=== PATIENT | female | born 1980 | race African-American/Black ===

== ENCOUNTER 2018-09-29 13:40 | Outpatient (CLI) | payer MEDICAID, OTHER ==
--- NOTE | 2018-09-29 15:16 | ULT ---
TRANSABDOMINAL TRANSVAGINAL PELVIC ULTRASOUND: INDICATION: Heavy menstrual period. COMPARISON: Pelvic ultrasound dated 03/30/[address] of the pelvis dated 04/02/2016. TECHNIQUE: Rich scale, color Doppler, and vascular duplex with spectral analysis was performed of the pelvis via transabdominal and transvaginal approach. FINDINGS: The uterus remains enlarged measuring 13.5 x 7.7 x 6.6 cm. There is a large subendometrial fibroid s uspected involving the posterior uterine body measuring 4.8 x 5.5 x 4.3 cm. This was likely present on the comparison examination and suboptimally visualized on the comparison examination. The lesion m easured approximately 4.7 x 3.7 x 4.5 cm on the prior ultrasound exam. There is a large left ovarian cyst measuring 3.1 cm. The left ovary measures 3.8 x 4.1 x 3.6 cm. Th e right ovary measures 3.4 x 2.9 x 1.9 cm. There is normal flow to both ovaries. No free fluid is evident. The endometrial stripe is poorly evaluated due to a large subendometrial f ibroid. IMPRESSION: 1. Large subendometrial fibroid likely present on the comparison examination in 2015 which based on the current measurements may have intervally grown from the prior exam. 2. A 3.1 cm left ovarian cyst. POS: [facility]
== END 2018-09-29 13:41 | disposition home or self-care (01) ==
LOC: SCSULT 13:40
PROVIDERS: ATTEND Family Medicine
DX: N94.6 Dysmenorrhea, unspecified (principal); N83.202 Unspecified ovarian cyst, left side; D26.1 Other benign neoplasm of corpus uteri
CPT/HCPCS: 76856

== ENCOUNTER 2019-10-21 08:56 | Outpatient (CLI) | payer MEDICAID ==
--- NOTE | 2019-10-21 11:28 | ULT ---
PELVIC ULTRASOUND: HISTORY: Dysmenorrhea. Followup cyst. COMPARISON: 09/29/2018. FINDINGS: The uterus remains enlarged measuring 12.8 cm x 7.7 cm x 8.6 cm. Uterus also demonstrates generalize d heterogeneity with what appears to be a large submucosal uterine fibroid again present measuring 6. 2 cm x 4.6 cm x 5.3 cm. Previously obtained measurements were 4.8 cm x 5.5 cm x 4.3 cm. The endomet rial stripe is not well delineated on this exam. Right ovary again demonstrates normal sonographic appearance with arterial flow documented. The anechoic cystic structure within the left ovary is again seen which measures 5.5 cm and demonstra pillo findings suggestive of a large left ovarian cyst with what appears to be a curvilinear septation in the cyst. Prior largest measurement of this left ovarian cystic lesion was 4.1 cm. IMPRESSION: 1. Enlargement of the uterus with what appears to be large uterine fibroid within the central body o f the uterus likely representing a large submucosal uterine fibroid with greatest dimension measured on today's examination of 6.2 cm. 2. Large left ovarian cyst which is larger in size compared to the prior study, and there is a small curvilinear septation present. Followup evaluation in 3-6 months is suggested. POS: [facility]
== END 2019-10-21 08:57 | disposition home or self-care (01) ==
LOC: SCSULT 08:56
PROVIDERS: ATTEND Family Medicine
DX: D25.9 Leiomyoma of uterus, unspecified (principal); D50.9 Iron deficiency anemia, unspecified; N94.6 Dysmenorrhea, unspecified; N83.202 Unspecified ovarian cyst, left side; N85.2 Hypertrophy of uterus
CPT/HCPCS: 76856; 93976

== ENCOUNTER 2020-06-01 07:06 | Outpatient (CLI) | payer MEDICAID, OTHER ==
[2020-06-01 16:40] LABS: Hemoglobin 9.1 g/dL (12.0-16.0); Mean Corpuscular HGB CONC 28.9 g/dL (32.0-36.0); Mean Corpuscular Hemoglobin 21.9 pg (27.0-31.0); Mean Corpuscular Volume 75.8 fL (78.0-98.0); Mean Platelet Volume 9.9 fL (7.4-10.4); Platelet Count 288 thou/uL (130-400); RBC Distribution Width 17.9 % (11.5-14.5); Red Blood Cell (RBC) Count 4.15 mill/uL (4.20-5.40); White Blood Cell (WBC) Count 7.2 thou/uL (4.8-10.8)
[2020-06-01 17:08] LABS: BHCG - Serum Negative (NEGATIVE); Pregs Control Background? CLEAR/WHITE (CLR/WHITE); Pregs Control Bar Appear? YES (CONTROL BAR)
[2020-06-01 17:58] LABS: Chloride 103 mmol/L (98-107); Potassium 3.8 mmol/L (3.5-5.1); Sodium 137 mmol/L (136-145)
[2020-06-01 17:59] LABS: Glucose 92 mg/dL (70-105)
[2020-06-01 18:01] LABS: Anion Gap 15 mmol/L (10-20); Carbon Dioxide 23 mmol/L (22-29)
[2020-06-01 18:02] LABS: Calc. Creatinine Clearance 0 mL/min (70-130); Estimated GFR-MDRD Greater than 90
[2020-06-01 18:03] LABS: BUN (Urea Nitrogen) 11 mg/dL (7.0-18.7)
[2020-06-02 12:21] LABS: SARS-CoV-2 MS2 Positive; SARS-CoV-2 N Gene Negative; SARS-CoV-2 S Gene Negative; SARS-CoV-2 by NAA Not Detected (NotDetected); SARS-CoV-2 orf1ab Negative
== END 2020-06-01 07:07 | disposition home or self-care (01) ==
LOC: LABBT 07:06
PROVIDERS: ATTEND Student in an Organized Health Care Education/Training Program
DX: Z01.812 Encounter for preprocedural laboratory examination (principal); Z20.828 Contact with and (suspected) exposure to other viral communicable diseases; D25.9 Leiomyoma of uterus, unspecified; N83.202 Unspecified ovarian cyst, left side
CPT/HCPCS: 80048; 84703; 85027; 86850; 86870; 86900; 86901; 86905; 87635; U0003

== ENCOUNTER 2020-06-06 05:57 | Day surgery (SDC) | payer MEDICAID ==
[2020-06-02 10:44] VITALS: BMI 31.0
[2020-06-06] MEDS ORDERED: CeleCOXIB 100 MG CAP ONE (06:25)
[2020-06-06] MEDS ORDERED: Gabapentin 300 MG CAP ONE (06:25)
[2020-06-06] MEDS ORDERED: Famotidine/PF 20 mg/2ml Vial ONE ×2 (06:25→07:04)
[2020-06-06] MEDS ORDERED: HYDROmorphone 0.5 MG/0.5 ML SYRINGE ONE ×2 (06:35→12:37)
[2020-06-06] MEDS ORDERED: Fentanyl 100 MCG/2 ML VIAL ONE ×2 (06:35→13:24)
[2020-06-06] MEDS ORDERED: Lidocaine 1% w/Epinephrine 1:100K 20 ML VIAL ONE ×2 (06:36→08:56)
[2020-06-06] MEDS ORDERED: Bupivacaine PF 0.5% 30 ML VIAL ONE ×2 (06:36→08:56)
[2020-06-06] MEDS ORDERED: Midazolam HCl 2 mg/2 ml Vial ONE (07:29)
[2020-06-06] MEDS ORDERED: Tranexamic Acid 1,000 MG/10 ML VIAL ONE ×3 (08:28→14:30)
[2020-06-06] MEDS ORDERED: Rocuronium Bromide 10 MG/ML (10ML VIAL) ONE (09:15)
[2020-06-06] MEDS ORDERED: Lidocaine 1% PF 5 ML VIAL ONE (09:15)
[2020-06-06] MEDS ORDERED: Ondansetron PF 4 MG/2 ML Vial ONE (09:15)
[2020-06-06] MEDS ORDERED: PROPOFOL 200 MG/20 ML VIAL ONE (09:15)
[2020-06-06] MEDS ORDERED: Dexamethasone 20 MG/5 ML VIAL ONE (09:15)
[2020-06-06] MEDS ORDERED: Ketorolac Tromethamine 30 MG/ML VIAL IVP PRN (11:02)
[2020-06-06] MEDS ORDERED: HYDROmorphone 2 MG/ML VIAL SLOW IVP PRN (11:02)
[2020-06-06] MEDS ORDERED: Ondansetron HCl/PF 4 MG/2 ML Vial IVP PRN (11:02)
[2020-06-06] MEDS ORDERED: Promethazine HCl 25 MG/ML VIAL SLOW IVP PRN (11:02)
[2020-06-06] MEDS ORDERED: Meperidine HCl/PF 25 MG/ML VIAL SLOW IVP PRN (11:02)
[2020-06-06] MEDS ORDERED: SUGAMMADEX SODIUM 200 MG/2 ML VIAL ONE (12:33)
[2020-06-06] MEDS ORDERED: Promethazine HCl 25 MG/ML VIAL IM PRN (13:17)
[2020-06-06] MEDS ORDERED: HYDROcodone/Acetaminophen 5/325 mg Tablet PO PRN ×2 (13:17)
[2020-06-06] MEDS ORDERED: Bisacodyl 10 MG SUPP PR PRN (13:17)
[2020-06-06] MEDS ORDERED: Zolpidem Tartrate 5 MG TAB PO PRN (13:17)
[2020-06-06] MEDS ORDERED: traMADol HCl 50 MG TAB PO PRN (13:17)
[2020-06-06] MEDS ORDERED: Ondansetron PF 4 MG/2 ML Vial IVP PRN (13:17)
[2020-06-06] MEDS ORDERED: diphenhydrAMINE 25 MG CAP PO PRN (13:17)
[2020-06-06] MEDS ORDERED: Simethicone Chewable 80 MG TAB PO PRN (13:17)
[2020-06-06] MEDS ORDERED: Docusate 100 MG CAP PO PRN (13:30)
[2020-06-06] MEDS ORDERED: Labetalol HCl 100 MG/20 ML VIAL ONE (13:58)
--- NOTE | 2020-06-06 14:33 | EKG ---
Test Reason : PREOP Blood Pressure : / mmHG Vent. Rate : 070 BPM Atrial Rate : 070 BPM P-R Int : 192 ms QRS Dur : 082 ms QT Int : 384 ms P-R-T Axes : 065 034 040 degrees QTc Int : 414 ms Normal sinus rhythm with sinus arrhythmia Normal ECG No previous ECGs available Confirmed by TORREY HECK M.D. ([id number] on 06/06/2020 2:33:14 PM Referred By: DINORAH Confirmed By:TORREY HECK M.D.
[2020-06-06] MEDS ORDERED: Tranexamic Acid 1,000 MG/10 ML VIAL IVP SCH (17:00)
[2020-06-06] MEDS: Ketorolac Tromethamine 30 MG/ML VIAL IVP SCH (17:54)
[2020-06-06] MEDS: Ferrous Sulfate 325 MG TAB PO SCH (18:30)
[2020-06-06] MEDS: Sodium Chloride 0.9% 1,000 ML IV SCH (20:56)
[2020-06-06] MEDS: Methimazole 10 MG TAB PO SCH (21:04)
[2020-06-07] MEDS: Sodium Chloride 0.9% 1,000 ML IV SCH ×3 (00:02→15:27)
[2020-06-07] MEDS: Ketorolac Tromethamine 30 MG/ML VIAL IVP SCH (00:20)
[2020-06-07 06:03] LABS: Hemoglobin 7.3 g/dL (12.0-16.0); Mean Corpuscular HGB CONC 29.2 g/dL (32.0-36.0); Mean Corpuscular Hemoglobin 23.1 pg (27.0-31.0); Mean Corpuscular Volume 79.1 fL (78.0-98.0); Mean Platelet Volume 8.7 fL (7.4-10.4); Platelet Count 209 thou/uL (130-400); RBC Distribution Width 19.8 % (11.5-14.5); Red Blood Cell (RBC) Count 3.14 mill/uL (4.20-5.40); White Blood Cell (WBC) Count 16.2 thou/uL (4.8-10.8)
[2020-06-07] MEDS: Ibuprofen 800 MG TAB PO SCH ×2 (06:27→16:06)
[2020-06-07] MEDS: Ferrous Sulfate 325 MG TAB PO SCH ×2 (08:18→11:27)
[2020-06-07] MEDS ORDERED: Doxycycline 100 MG CAP PO SCH (09:00)
[2020-06-07] MEDS ORDERED: Furosemide 40 MG TAB PO SCH (09:00)
[2020-06-07] MEDS ORDERED: Calcium Carbonate 600 MG + Vit D TAB PO SCH (09:00)
[2020-06-07] MEDS: Methimazole 10 MG TAB PO SCH (09:05)
[2020-06-07] MEDS ORDERED: Acetaminophen 500 MG TAB PO SCH (10:30)
[2020-06-07] MEDS ORDERED: Iron Sucrose Complex 500 MG in Sodium Chloride 0.9% 250 ML 250 ML IVPB SCH (11:00)
--- NOTE | 2020-06-07 12:46 | PDOC.EVN ---
Event Note - Event Note Event Note: POD1 S: Pain controlled, voiding, raiza po. Denies dizziness, lightheadedness O: VSSAF Uterine output overnight: 80cc NAD unlabored respiration soft abd/appttp/inc c/d/i x 5 no edema Hgb 7.3 A) POD 1 s/p RA myomectomy, left ovarian cystectomy P) VSSAF Hgb 7.3 postop, acute postop anemia on chronic iron def anemia, asymptomatic, plan for IV iron infusion prior to DC, cont oral iron replacement. Met appropriate postop milestones No concern with uterine catheter outpt, will remove 15cc from balloon, leaving 15cc in balloon. Cont x 7d with estrogen replacement and doxycycline ppx. Plan for DC after iron infusion
[2020-06-07 17:14] VITALS: BP 142/84; TEMP 97.9
== END 2020-06-07 17:34 | disposition home or self-care (01) ==
LOC: SDC 05:57 → 3SE 13:17 → SDC 06-07 17:34
PROVIDERS: ATTEND Student in an Organized Health Care Education/Training Program
PROC: 0UB14ZZ Excision of Left Ovary, Percutaneous Endoscopic Approach (ICD-10-PCS; principal; 2020-06-07)
PROC: 0UB94ZZ Excision of Uterus, Percutaneous Endoscopic Approach (ICD-10-PCS; principal; 2020-06-07)
DX: D25.9 Leiomyoma of uterus, unspecified (principal); N83.202 Unspecified ovarian cyst, left side; N80.0 Endometriosis of uterus; F17.210 Nicotine dependence, cigarettes, uncomplicated; I50.9 Heart failure, unspecified; Z79.899 Other long term (current) drug therapy
CPT/HCPCS: 36415; 85027; 86850; 86900; 86901; 86922; 88305; 93005; 93010; J0690; J1100; J1170; J1756; J1885; J2250; J2405; J2704; J3010; J7050; S0020; S0028

== ENCOUNTER 2020-08-29 07:48 | Outpatient (CLI) | payer MEDICAID ==
[2020-08-29 08:17] LABS: BHCG - Serum Negative (NEGATIVE)
[2020-08-29 08:22] LABS: Pregs Control Background? CLEAR/WHITE (CLR/WHITE); Pregs Control Bar Appear? NO (CONTROL BAR)
--- NOTE | 2020-08-29 10:43 | RAD ---
HYSTEROSALPINGOGRAM: HISTORY: Uterine leiomyoma. Evaluate for possible tubal patency. Patient is wanting to have another child. Pat ient is status post fibroid surgery and cyst removal. EXPOSURE: 1.3 minutes, 356.6 mGy*^m2. FINDINGS: Initial development and planning engineer radiograph of the pelvis demonstrates normal bony pelvic structures. Retrograde opacifi cation of the endometrium was attempted. There is irregularity in what is presumed to be the endometrial cavity without significant expansion. There is reflux of contrast into the vaginal vault. Examination was repeated with the assistance of Dr. Blake. Again, there is irregularity and what is presumed to be the endometrium reflux of contrast into the vaginal vault. Incomplete expansion/montserrat luation of the endometrium. Fallopian tubes cannot be assessed. IMPRESSION: Irregularity involving what is presumed to be the endometrium which may represent scar tissue. Results of study conveyed to Dr. Knowles via [employer] connect 08/29/2020 at 10:42 AM. Code CR Transcribed Date/Time: 08/29/2020 10:47 AM
[2020-08-29] MEDS ORDERED: Iopamidol 300 61% 50 ML VIAL FS ONE (13:19)
== END 2020-08-29 07:49 | disposition home or self-care (01) ==
LOC: RAD 07:48
PROVIDERS: ATTEND Student in an Organized Health Care Education/Training Program
DX: Z32.00 Encounter for pregnancy test, result unknown (principal); D25.9 Leiomyoma of uterus, unspecified; N85.9 Noninflammatory disorder of uterus, unspecified
CPT/HCPCS: 36415; 58340; 74740; 84703; Q9967

== ENCOUNTER 2025-07-14 18:15 | Inpatient (IN) | payer OTHER ==
[~2025-07-14 18:15] MED LIST: Iopamidol-370 76% 500 ML MDV (1 ML CHARGE) ONE
[2025-07-14 18:55] LABS: #Basophils 0.06 10x3/uL (0.0-0.2); #Eosinophils 0.07 10x3/uL (0.0-0.7); #Monocytes 0.51 10x3/uL (0.11-0.59); #Neutrophils 3.06 10x3/uL (1.40-6.50); %Basophils 0.8 % (0.0-1.0); %Eosinophils 1.0 % (0.0-10.0); %Lymphocytes 48.5 % (21.0-51.0); %Monocytes 7.1 % (0.0-10.0); %Neutrophils 42.5 % (42.0-75.0); Hematocrit 42.6 % (36.0-47.0); Hemoglobin 13.5 g/dL (12.0-16.0); Mean Corpuscular Hemoglobin 26.3 pg (27.0-31.0); Mean Corpuscular Volume 82.9 fL (78.0-98.0); Platelet Count 213 10x3/uL (130-400); Red Blood Cell (RBC) Count 5.14 mill/uL (4.20-5.40); White Blood Cell (WBC) Count 7.21 10x3/uL (4.8-10.8)
[2025-07-14 19:08] LABS: BHCG - Serum Negative (NEGATIVE); Pregs Control Background? CLEAR/WHITE (CLR/WHITE); Pregs Control Bar Appear? YES (CONTROL BAR)
[2025-07-14 19:20] LABS: ALT (SGPT) 21 U/L (Less than 34); AST (SGOT) 32 U/L (11-34); Albumin 2.8 g/dL (3.1-4.5); Alkaline Phosphatase 214 U/L (40-110); Anion Gap 16 mmol/L (10-20); BUN (Urea Nitrogen) 11 mg/dL (7.0-18.7); Bilirubin, Total 3.9 mg/dL (0.3-1.2); Calc. Creatinine Clearance 0 mL/min (70-130); Calcium 9.0 mg/dL (7.8-10.44); Carbon Dioxide 23 mmol/L (22-29); Chloride 105 mmol/L (98-107); Globulin 5.0 g/dL (2.4-3.5); Glucose 109 mg/dL (70-105); Potassium 4.1 mmol/L (3.5-5.1); Sodium 140 mmol/L (136-145)
[2025-07-14] MEDS ORDERED: Enoxaparin 80 MG (0.8 mL) SYRINGE ONE (21:34)
[2025-07-14 21:49] LABS: Bacteria/HPF None Seen HPF (None Seen); CAUTI Indications for Culture Dysuria,urgency,freq; Glucose, Urine (Dipstick) Normal (Negative); Leukocyte 250 Leu/uL (Negative); Protein, Urine (Dipstick) 50 mg/dL (Neg-Trace)
[2025-07-14 21:56] LABS: Specific Gravity, Urine Greater than 1.050 (1.002-1.036)
[2025-07-14 21:57] LABS: Urine Culture Reflex Yes Yes
[2025-07-14] MEDS ORDERED: Furosemide 40 MG (4 mL) VIAL ONE (22:18)
[2025-07-14] MEDS ORDERED: Ondansetron PF 4 MG/2 ML Vial IVP PRN (22:27)
[2025-07-14] MEDS ORDERED: Acetaminophen 325 MG TAB PO PRN (22:27)
[2025-07-14] MEDS ORDERED: Calcium Carbonate 500 MG ChewTAB PO PRN (22:27)
[2025-07-14] MEDS ORDERED: Electrolyte Replacement Protocol 1 EACH FS SCH (22:30)
[2025-07-15] MEDS: Furosemide 40 MG (4 mL) VIAL SLOW IVP SCH ×2 (02:25→09:07)
[2025-07-15 04:09] LABS: #Basophils 0.04 10x3/uL (0.0-0.2); #Eosinophils 0.04 10x3/uL (0.0-0.7); #Monocytes 0.58 10x3/uL (0.11-0.59); #Neutrophils 3.45 10x3/uL (1.40-6.50); %Basophils 0.6 % (0.0-1.0); %Eosinophils 0.6 % (0.0-10.0); %Lymphocytes 38.0 % (21.0-51.0); %Monocytes 8.7 % (0.0-10.0); %Neutrophils 51.8 % (42.0-75.0); Hematocrit 41.9 % (36.0-47.0); Hemoglobin 13.1 g/dL (12.0-16.0); Mean Corpuscular Hemoglobin 26.1 pg (27.0-31.0); Mean Corpuscular Volume 83.5 fL (78.0-98.0); Platelet Count 233 10x3/uL (130-400); Red Blood Cell (RBC) Count 5.02 mill/uL (4.20-5.40); White Blood Cell (WBC) Count 6.66 10x3/uL (4.8-10.8)
[2025-07-15 04:36] LABS: ALT (SGPT) 19 U/L (Less than 34); AST (SGOT) 26 U/L (11-34); Albumin 2.6 g/dL (3.1-4.5); Alkaline Phosphatase 196 U/L (40-110); Anion Gap 16 mmol/L (10-20); BUN (Urea Nitrogen) 11 mg/dL (7.0-18.7); Bilirubin, Total 4.7 mg/dL (0.3-1.2); Calc. Creatinine Clearance 169 mL/min (70-130); Calcium 8.7 mg/dL (7.8-10.44); Carbon Dioxide 21 mmol/L (22-29); Chloride 105 mmol/L (98-107); Globulin 4.5 g/dL (2.4-3.5); Glucose 143 mg/dL (70-105); Magnesium 1.6 mg/dL (1.6-2.6); Potassium 3.7 mmol/L (3.5-5.1); Sodium 138 mmol/L (136-145)
[2025-07-15 06:01] LABS: Cocaine Metabolite Screen Negative (Negative); THC/Cannabinoid Screen PRELIM POSITIVE (Negative); Tricyclic Screen Negative (Negative)
[2025-07-15] MEDS ORDERED: Cyclobenzaprine 10 MG TAB PO PRN (08:27)
[2025-07-15 08:53] LABS: Free T4 (Free Thyroxine) 3.11 ng/dL (0.70-1.48); T4 12.75 ug/dL (4.87-11.72)
[2025-07-15] MEDS: Magnesium 2 GM/50 ML(in water) 2 GM in Premix 1 BAG IVPB SCH (09:45)
[2025-07-15] MEDS: cefTRIAXone\\ROCEPHIN 1 GM in Sodium Chloride 0.9% 100 ML IVPB SCH (09:45)
[2025-07-15] MEDS: Sacubitril 24MG/Valsartan 26 MG TAB PO SCH (11:25)
[2025-07-15] MEDS: Spironolactone 25 MG TAB PO SCH (11:25)
[2025-07-15] MEDS: Apixaban 5 MG TAB PO SCH (11:25)
[2025-07-15] MEDS: Carvedilol 6.25 MG TAB PO SCH (11:26)
[2025-07-15] MEDS: Cyclobenzaprine 10 MG TAB PO SCH (11:26)
[2025-07-15] MEDS: Albumin 25% 25 GM (100 mL) BOT IVPB SCH (15:39)
[2025-07-15] MEDS ORDERED: Vancomycin (BATCH) 2 GM Premix IVPB SCH (15:45)
[2025-07-15] MEDS ORDERED: Electrolyte Replacement Protocol 1 EACH FS SCH (15:45)
[2025-07-15 16:17] LABS: Pregnancy Test - Urine (BHCG) Negative (Negative); Pregu Control Background? CLEAR/WHITE (CLR/WHITE); Pregu Control Bar Appear? YES (CONTROL BAR)
[2025-07-15] MEDS: Norepinephrine 8 MG/0.9% NS 250 ML ONE (16:18)
[2025-07-15] MEDS: Norepinephrine 8 MG/0.9% NS 250 ML IVPB SCH (16:18)
[2025-07-15 16:22] LABS: Glucose, Urine (Dipstick) Normal (Negative); Leukocyte 250 Leu/uL (Negative); Protein, Urine (Dipstick) 30 mg/dL (Neg-Trace); RBC/HPF None Seen HPF (0-3); Specific Gravity, Urine 1.049 (1.002-1.036)
[2025-07-15 16:23] LABS: Bacteria/HPF 1+ HPF (None Seen)
[2025-07-15] MEDS: VANCOMYCIN 2 GRAM/400 ML Premix BAG IVPB SCH (16:39)
[2025-07-15 16:42] LABS: #Basophils Less than 0.03 10x3/uL (0.0-0.2); #Eosinophils Less than 0.03 10x3/uL (0.0-0.7); #Monocytes 0.51 10x3/uL (0.11-0.59); #Neutrophils 3.97 10x3/uL (1.40-6.50); %Basophils 0.2 % (0.0-1.0); %Eosinophils 0.2 % (0.0-10.0); %Lymphocytes 27.9 % (21.0-51.0); %Monocytes 8.1 % (0.0-10.0); %Neutrophils 63.3 % (42.0-75.0); Hematocrit 28.3 % (36.0-47.0); Hemoglobin 8.7 g/dL (12.0-16.0); Mean Corpuscular Hemoglobin 26.2 pg (27.0-31.0); Mean Corpuscular Volume 85.2 fL (78.0-98.0); Platelet Count 148 10x3/uL (130-400); Red Blood Cell (RBC) Count 3.32 mill/uL (4.20-5.40); White Blood Cell (WBC) Count 6.27 10x3/uL (4.8-10.8)
[2025-07-15] MEDS: Dapagliflozin Propanediol 10 MG TAB PO SCH (18:23)
[2025-07-15] MEDS: Digoxin 0.5 MG/2 ML AMP SLOW IVP SCH ×3 (18:24→20:55)
[2025-07-15 19:42] LABS: ALT (SGPT) 43 U/L (Less than 34); AST (SGOT) 98 U/L (11-34); Albumin 2.7 g/dL (3.1-4.5); Alkaline Phosphatase 171 U/L (40-110); Anion Gap 17 mmol/L (10-20); BUN (Urea Nitrogen) 17 mg/dL (7.0-18.7); Bilirubin, Total 4.5 mg/dL (0.3-1.2); Calc. Creatinine Clearance 120 mL/min (70-130); Calcium 8.4 mg/dL (7.8-10.44); Carbon Dioxide 20 mmol/L (22-29); Chloride 104 mmol/L (98-107); Globulin 3.9 g/dL (2.4-3.5); Glucose 97 mg/dL (70-105); Potassium 4.5 mmol/L (3.5-5.1); Sodium 136 mmol/L (136-145)
[2025-07-15] MEDS ORDERED: Vancomycin 1 GM in Premix 1 BAG IVPB SCH (21:00)
[2025-07-16 04:33] LABS: Vancomycin, Random 14.0 ug/mL (See Comment)
[2025-07-16] MEDS: VANCOMYCIN 1.75 GM/350 ML BAG 1.75 GM in Premix 1 BAG IVPB SCH (05:33)
[2025-07-16] MEDS ORDERED: Vancomycin (BATCH) 1.75 GM Premix IVPB SCH (06:00)
[2025-07-16 06:33] VITALS: BMI 29.3
[2025-07-16 08:52] LABS: #Basophils 0.06 10x3/uL (0.0-0.2); #Eosinophils 0.08 10x3/uL (0.0-0.7); #Monocytes 0.89 10x3/uL (0.11-0.59); #Neutrophils 6.50 10x3/uL (1.40-6.50); %Basophils 0.5 % (0.0-1.0); %Eosinophils 0.7 % (0.0-10.0); %Lymphocytes 30.8 % (21.0-51.0); %Monocytes 8.2 % (0.0-10.0); %Neutrophils 59.6 % (42.0-75.0); Hematocrit 43.4 % (36.0-47.0); Hemoglobin 13.3 g/dL (12.0-16.0); Mean Corpuscular Hemoglobin 25.8 pg (27.0-31.0); Mean Corpuscular Volume 84.1 fL (78.0-98.0); Platelet Count 236 10x3/uL (130-400); Red Blood Cell (RBC) Count 5.16 mill/uL (4.20-5.40); White Blood Cell (WBC) Count 10.91 10x3/uL (4.8-10.8)
[2025-07-16 08:54] LABS: CRP, High Sensitivity at Bryan 3.50 mg/dL (< or = 0.5)
[2025-07-16 08:55] LABS: ALT (SGPT) 75 U/L (Less than 34); AST (SGOT) 178 U/L (11-34); Albumin 3.2 g/dL (3.1-4.5); Alkaline Phosphatase 147 U/L (40-110); Anion Gap 15 mmol/L (10-20); BUN (Urea Nitrogen) 16 mg/dL (7.0-18.7); Bilirubin, Total 4.4 mg/dL (0.3-1.2); Calc. Creatinine Clearance 162 mL/min (70-130); Calcium 8.8 mg/dL (7.8-10.44); Carbon Dioxide 24 mmol/L (22-29); Chloride 105 mmol/L (98-107); Globulin 3.6 g/dL (2.4-3.5); Glucose 108 mg/dL (70-105); Magnesium 1.9 mg/dL (1.6-2.6); Potassium 4.0 mmol/L (3.5-5.1); Sodium 140 mmol/L (136-145)
[2025-07-16] MEDS ORDERED: Digoxin 0.5 MG/2 ML AMP SLOW IVP SCH (09:00)
[2025-07-16] MEDS: Digoxin 0.125 MG TAB PO SCH (09:10)
[2025-07-16] MEDS: Amiodarone 200 MG TAB PO SCH (09:10)
[2025-07-16] MEDS: Dapagliflozin Propanediol 10 MG TAB PO SCH (09:15)
[2025-07-16] MEDS: Propranolol 10 MG TAB PO SCH (09:15)
[2025-07-16] MEDS: Magnesium 2 GM/50 ML(in water) 2 GM in Premix 1 BAG IVPB SCH (15:05)
[2025-07-16] MEDS: Vancomycin 1 GM Premix Bag IVPB SCH (18:34)
[2025-07-17 04:08] LABS: #Basophils 0.05 10x3/uL (0.0-0.2); #Eosinophils 0.14 10x3/uL (0.0-0.7); #Monocytes 0.93 10x3/uL (0.11-0.59); #Neutrophils 3.81 10x3/uL (1.40-6.50); %Basophils 0.6 % (0.0-1.0); %Eosinophils 1.7 % (0.0-10.0); %Lymphocytes 40.8 % (21.0-51.0); %Monocytes 11.1 % (0.0-10.0); %Neutrophils 45.7 % (42.0-75.0); Hematocrit 38.0 % (36.0-47.0); Hemoglobin 12.0 g/dL (12.0-16.0); Mean Corpuscular Hemoglobin 26.3 pg (27.0-31.0); Mean Corpuscular Volume 83.2 fL (78.0-98.0); Platelet Count 192 10x3/uL (130-400); Red Blood Cell (RBC) Count 4.57 mill/uL (4.20-5.40); White Blood Cell (WBC) Count 8.35 10x3/uL (4.8-10.8)
[2025-07-17 04:16] LABS: Vancomycin, Random 18.5 ug/mL (See Comment)
[2025-07-17 04:21] LABS: ALT (SGPT) 77 U/L (Less than 34); AST (SGOT) 116 U/L (11-34); Albumin 2.9 g/dL (3.1-4.5); Alkaline Phosphatase 137 U/L (40-110); Anion Gap 14 mmol/L (10-20); BUN (Urea Nitrogen) 17 mg/dL (7.0-18.7); Bilirubin, Total 2.9 mg/dL (0.3-1.2); Calc. Creatinine Clearance 145 mL/min (70-130); Calcium 8.3 mg/dL (7.8-10.44); Carbon Dioxide 20 mmol/L (22-29); Chloride 109 mmol/L (98-107); Globulin 3.0 g/dL (2.4-3.5); Glucose 80 mg/dL (70-105); Magnesium 2.0 mg/dL (1.6-2.6); Potassium 4.2 mmol/L (3.5-5.1); Sodium 139 mmol/L (136-145)
[2025-07-18 04:38] LABS: #Basophils 0.04 10x3/uL (0.0-0.2); #Eosinophils 0.12 10x3/uL (0.0-0.7); #Monocytes 0.60 10x3/uL (0.11-0.59); #Neutrophils 3.39 10x3/uL (1.40-6.50); %Basophils 0.5 % (0.0-1.0); %Eosinophils 1.5 % (0.0-10.0); %Lymphocytes 47.7 % (21.0-51.0); %Monocytes 7.6 % (0.0-10.0); %Neutrophils 42.7 % (42.0-75.0); Hematocrit 41.9 % (36.0-47.0); Hemoglobin 13.3 g/dL (12.0-16.0); Mean Corpuscular Hemoglobin 26.4 pg (27.0-31.0); Mean Corpuscular Volume 83.3 fL (78.0-98.0); Platelet Count 206 10x3/uL (130-400); Red Blood Cell (RBC) Count 5.03 mill/uL (4.20-5.40); White Blood Cell (WBC) Count 7.93 10x3/uL (4.8-10.8)
[2025-07-18 04:57] LABS: Anion Gap 13 mmol/L (10-20); BUN (Urea Nitrogen) 18 mg/dL (7.0-18.7); Calc. Creatinine Clearance 151 mL/min (70-130); Calcium 8.5 mg/dL (7.8-10.44); Carbon Dioxide 20 mmol/L (22-29); Chloride 110 mmol/L (98-107); Glucose 106 mg/dL (70-105); Potassium 4.4 mmol/L (3.5-5.1); Sodium 139 mmol/L (136-145)
[2025-07-18] MEDS: Senokot S 8.6-50 MG TAB PO SCH ×2 (14:37→20:52)
[2025-07-18] MEDS: Milk Of Magnesia 30 ML UDCUP PO SCH (14:38)
[2025-07-19 04:30] LABS: #Basophils 0.05 10x3/uL (0.0-0.2); #Eosinophils 0.08 10x3/uL (0.0-0.7); #Monocytes 0.57 10x3/uL (0.11-0.59); #Neutrophils 2.61 10x3/uL (1.40-6.50); %Basophils 0.7 % (0.0-1.0); %Eosinophils 1.2 % (0.0-10.0); %Lymphocytes 52.2 % (21.0-51.0); %Monocytes 8.2 % (0.0-10.0); %Neutrophils 37.6 % (42.0-75.0); Hematocrit 42.5 % (36.0-47.0); Hemoglobin 13.0 g/dL (12.0-16.0); Mean Corpuscular Hemoglobin 25.4 pg (27.0-31.0); Mean Corpuscular Volume 83.2 fL (78.0-98.0); Platelet Count 203 10x3/uL (130-400); Red Blood Cell (RBC) Count 5.11 mill/uL (4.20-5.40); White Blood Cell (WBC) Count 6.95 10x3/uL (4.8-10.8)
[2025-07-19 04:51] LABS: ALT (SGPT) 61 U/L (Less than 34); AST (SGOT) 53 U/L (11-34); Albumin 3.0 g/dL (3.1-4.5); Alkaline Phosphatase 141 U/L (40-110); Anion Gap 12 mmol/L (10-20); BUN (Urea Nitrogen) 20 mg/dL (7.0-18.7); Bilirubin, Total 2.0 mg/dL (0.3-1.2); Calc. Creatinine Clearance 155 mL/min (70-130); Calcium 8.5 mg/dL (7.8-10.44); Carbon Dioxide 19 mmol/L (22-29); Chloride 111 mmol/L (98-107); Globulin 3.5 g/dL (2.4-3.5); Glucose 87 mg/dL (70-105); Potassium 4.8 mmol/L (3.5-5.1); Sodium 137 mmol/L (136-145)
[2025-07-19] MEDS: Lisinopril 10 MG TAB PO SCH (09:47)
[2025-07-20 04:13] LABS: #Basophils 0.04 10x3/uL (0.0-0.2); #Eosinophils 0.10 10x3/uL (0.0-0.7); #Monocytes 0.55 10x3/uL (0.11-0.59); #Neutrophils 3.21 10x3/uL (1.40-6.50); %Basophils 0.5 % (0.0-1.0); %Eosinophils 1.3 % (0.0-10.0); %Lymphocytes 47.4 % (21.0-51.0); %Monocytes 7.4 % (0.0-10.0); %Neutrophils 43.3 % (42.0-75.0); Hematocrit 41.2 % (36.0-47.0); Hemoglobin 12.7 g/dL (12.0-16.0); Mean Corpuscular Hemoglobin 25.7 pg (27.0-31.0); Mean Corpuscular Volume 83.4 fL (78.0-98.0); Platelet Count 200 10x3/uL (130-400); Red Blood Cell (RBC) Count 4.94 mill/uL (4.20-5.40); White Blood Cell (WBC) Count 7.43 10x3/uL (4.8-10.8)
[2025-07-20 04:23] LABS: Anion Gap 12 mmol/L (10-20); BUN (Urea Nitrogen) 16 mg/dL (7.0-18.7); Calc. Creatinine Clearance 162 mL/min (70-130); Calcium 8.5 mg/dL (7.8-10.44); Carbon Dioxide 22 mmol/L (22-29); Chloride 109 mmol/L (98-107); Glucose 96 mg/dL (70-105); Potassium 4.5 mmol/L (3.5-5.1); Sodium 138 mmol/L (136-145)
[2025-07-20] MEDS ORDERED: PROPOFOL 20 ML ONE (10:39)
[2025-07-20] MEDS: Furosemide 40 MG (4 mL) VIAL SLOW IVP SCH (13:43)
[2025-07-20] MEDS ORDERED: Ketamine In 0.9 % NaCl 50 MG/5 ML SYRINGE ONE (15:25)
[2025-07-20] MEDS ORDERED: Lidocaine 1% PF 5 ML VIAL ONE (15:42)
[2025-07-20] MEDS ORDERED: PROPOFOL 200 MG/20 ML VIAL ONE (15:42)
[2025-07-21 03:45] LABS: #Basophils 0.05 10x3/uL (0.0-0.2); #Eosinophils 0.07 10x3/uL (0.0-0.7); #Monocytes 0.77 10x3/uL (0.11-0.59); #Neutrophils 2.51 10x3/uL (1.40-6.50); %Basophils 0.8 % (0.0-1.0); %Eosinophils 1.1 % (0.0-10.0); %Lymphocytes 46.6 % (21.0-51.0); %Monocytes 12.1 % (0.0-10.0); %Neutrophils 39.2 % (42.0-75.0); Hematocrit 39.3 % (36.0-47.0); Hemoglobin 12.5 g/dL (12.0-16.0); Mean Corpuscular Hemoglobin 26.4 pg (27.0-31.0); Mean Corpuscular Volume 83.1 fL (78.0-98.0); Platelet Count 175 10x3/uL (130-400); Red Blood Cell (RBC) Count 4.73 mill/uL (4.20-5.40); White Blood Cell (WBC) Count 6.39 10x3/uL (4.8-10.8)
[2025-07-21 04:13] LABS: Anion Gap 15 mmol/L (10-20); BUN (Urea Nitrogen) 18 mg/dL (7.0-18.7); Calc. Creatinine Clearance 123 mL/min (70-130); Calcium 8.6 mg/dL (7.8-10.44); Carbon Dioxide 22 mmol/L (22-29); Chloride 107 mmol/L (98-107); Glucose 79 mg/dL (70-105); Potassium 4.3 mmol/L (3.5-5.1); Sodium 140 mmol/L (136-145)
[2025-07-21] MEDS: Propranolol 10 MG TAB PO SCH (09:47)
[2025-07-21] MEDS: Spironolactone 25 MG TAB PO SCH (10:16)
[2025-07-21 13:17] VITALS: TEMP 97.9; BMI 29.3
[2025-07-21] MEDS: Furosemide 40 MG TAB PO SCH (14:21)
[2025-07-21 16:26] VITALS: BP 118/79
[2025-07-22] MEDS ORDERED: Spironolactone 25 MG TAB PO SCH (09:00)
== END 2025-07-21 16:27 | disposition home or self-care (01) | DRG 291 ==
LOC: ERS 18:15 → ERHOLD 22:52 → 2NO 07-15 06:12 → IMCU/EMU 07-15 15:37 → PCU 07-16 12:49
PROVIDERS: ADMIT Student in an Organized Health Care Education/Training Program; ATTEND Internal Medicine
PROC: 5A2204Z Restoration of Cardiac Rhythm, Single (ICD-10-PCS; principal; 2025-07-21)
PROC: 30233J1 Transfusion of Nonautologous Serum Albumin into Peripheral Vein, Percutaneous Approach (ICD-10-PCS; 2025-07-21)
DX: I11.0 Hypertensive heart disease with heart failure (principal); I50.23 Acute on chronic systolic (congestive) heart failure; K80.10 Calculus of gallbladder with chronic cholecystitis without obstruction; N30.00 Acute cystitis without hematuria; I48.19 Other persistent atrial fibrillation; F15.10 Other stimulant abuse, uncomplicated; K76.0 Fatty (change of) liver, not elsewhere classified; D17.79 Benign lipomatous neoplasm of other sites; E05.90 Thyrotoxicosis, unspecified without thyrotoxic crisis or storm; Z91.148 Patient's other noncompliance with medication regimen for other reason; D64.9 Anemia, unspecified; E05.00 Thyrotoxicosis with diffuse goiter without thyrotoxic crisis or storm; K59.09 Other constipation; Z79.01 Long term (current) use of anticoagulants
CPT/HCPCS: 36415; 36416; 71045; 74018; 74177; 76705; 80048; 80053; 80202; 80306; 81001; 81025; 83605; 83735; 83880; 84436; 84439; 84443; 84481; 84484; 84703; 85025; 86141; 87040; 87086; 92960; 93005; 93010; 93306; 93312; 93798; 97139; J0282; J0696; J1160; J1650; J1940; J2250; J2543; J2704; J3373; J3375; J3475; J3490; J7030; J7070; P9047; Q0162; Q9967